=== PATIENT | male | born 1935 | race Caucasian/White ===

== ENCOUNTER 2022-10-03 06:35 | Outpatient (CLI) | payer MEDICARE, SELFPAY ==
--- NOTE | 2022-10-04 12:19 | WPDNEUROLOGY ---
Neurology EEG Report General Information Date of Study: 10/03/22 TEST Routine EEG DIAGNOSIS Syncope vs Seizure CONDITION OF RECORDING Awake, drowsy, asleep EEG NUMBER [id number] CLINICAL HISTORY Patients states he had an episode where he became dizzy and almost lost consciousness. He denied any bowel or bladder incontinence at the time. EEG DESCRIPTION During the awake state with eyes closed the background consists of 9 Hz posterior dominant rhythm which attenuates appropriately with eye opening. The recording is continuous. There is a well developed anterior-posterior gradient. No significant asymmetries of background activities are noted. With drowsiness there is waxing and waning of the dominant rhythm with eventual replacement by a mixture of beta, alpha, and theta activity. Sleep spindles were noted during stage II sleep. There are no epileptiform discharges or seizures during this recording. Photic stimulation did not elicit any abnormal photoparoxysmal response. IMPRESSION This is a normal routine EEG recorded in awake and asleep states. There are no electrographic seizures identified, nor are there any epileptiform discharges. Please note that a normal EEG cannot exclude a seizure disorder. Clinical correlation is recommended.
== END 2022-10-03 06:36 | disposition home or self-care (01) ==
PROVIDERS: PCP Family Medicine; Visit Provider Family Medicine
DX: N18.30 Chronic kidney disease, stage 3 unspecified (principal); F03.90 Unspecified dementia, unspecified severity, without behavioral disturbance, psychotic disturbance, mood disturbance, and anxiety; I48.91 Unspecified atrial fibrillation; R93.89 Abnormal findings on diagnostic imaging of other specified body structures; D38.1 Neoplasm of uncertain behavior of trachea, bronchus and lung; M48.061 Spinal stenosis, lumbar region without neurogenic claudication; F32.4 Major depressive disorder, single episode, in partial remission; R55 Syncope and collapse; Z95.0 Presence of cardiac pacemaker
CPT/HCPCS: 95816